=== PATIENT | female | born 1970 | race Caucasian/White ===

== ENCOUNTER → 2017-04-18 | Outpatient (CLI) | payer BC | END | disposition home or self-care (01) | LOC: KCIC MAMMO 12:15 | DX: Z12.31 Encounter for screening mammogram for malignant neoplasm of breast (principal) | CPT/HCPCS: 77067 ==

== ENCOUNTER → 2018-06-01 | Outpatient (CLI) | payer BC ==
--- NOTE | 2018-06-02 10:07 | KCIC ---
Bilateral digital screening mammograms: Reason for examination: Routine screening. Comparison is made to previous studies dated 04/18/2017 and 02/15/2016. Interpretation was made with the benefit of CAD. The skin and nipples show no abnormalities. No abnormal axillary lymph nodes are seen. Bilateral breast implants remain present. The breast parenchyma shows scattered fibroglandular density. (Breast density: Category B.) There is a small parenchymal density in the 12:00 B position of the right breast measuring approximately 6 mm in size. Recommend further evaluation with coned compression views and ultrasound. There are no other dominant masses, suspicious calcifications or architectural distortions. Impression: Small 6 mm nodular parenchymal density in the 12:00 B position of the right breast. Recommend further evaluation with coned compression views in CC and true lateral projections and with ultrasound. BI-RADS Category 0: Incomplete. Needs additional imaging evaluation. "Our facility is accredited by the [employer] Mammography [employer]." This patient's information has been entered into a reminder system for the patient to be notified with the results of her examination and a target date for the next mammogram. Electronically signed by: Sarah Matos MD (06/02/2018 10:04 AM) [id number]
== END | disposition home or self-care (01) ==
LOC: KCIC MAMMO 17:26
PROVIDERS: ATTEND Obstetrics & Gynecology
DX: Z12.31 Encounter for screening mammogram for malignant neoplasm of breast (principal); R92.8 Other abnormal and inconclusive findings on diagnostic imaging of breast; Z98.82 Breast implant status
CPT/HCPCS: 77067

== ENCOUNTER → 2018-06-12 | Outpatient (CLI) | payer BC ==
--- NOTE | 2018-06-12 10:56 | KCIC ---
Right breast diagnostic digital mammograms: Reason for examination: Nodular density on screening mammogram. Comparison is made to mammographic exam dated 06/01/2018. Coned compression views were obtained in CC and lateral projections. With these additional views, there is some minimal focal parenchymal density suggested at that 12:00 B position. Further evaluation however with ultrasound will follow. IMPRESSION: Some minimal parenchymal density at the 12:00 position which would correspond to the area of mammographic concern. Ultrasound to follow. BI-RADS Category 0: Incomplete. Needs additional imaging evaluation. Right breast ultrasound: Ultrasound examination was performed in the area of mammographic concern and at the right axilla. At the 12:00 position 6 cm from the nipple, there is a focal patch of fibrocystic type change measuring 6.5 mm in greatest dimension. No other focal cystic or solid lesions are seen. No abnormal appearing lymph nodes are seen in the axilla. IMPRESSION: Small focus of fibrocystic-type change at the 12:00 position 6 cm from the nipple. Recommend reevaluation with ultrasound in 6 months. BI-RADS Category 3: Probably Benign. "Our facility is accredited by the [employer] Mammography Program." This patient's information has been entered into a reminder system for the patient to be notified with the results of her examination and a target date for the next mammogram. Electronically signed by: Sarah Matos MD (06/12/2018 10:53 AM) [id number]
== END | disposition home or self-care (01) ==
LOC: KCIC MAMMO 09:48
PROVIDERS: ATTEND Obstetrics & Gynecology
DX: R92.8 Other abnormal and inconclusive findings on diagnostic imaging of breast (principal)
CPT/HCPCS: 76641; 77065

== ENCOUNTER → 2018-12-17 | Outpatient (CLI) | payer BC ==
--- NOTE | 2018-12-17 09:47 | KCIC ---
BREAST RIGHT Clinical Indication: Six-month follow-up. Comparison: Right breast ultrasound June 12, 2018. TECHNIQUE: Real-time ultrasound imaging of the right breast is performed. Findings: At the 12:00 position 6 cm from the nipple, fibrocystic change measuring up to 6 mm is stable. No solid mass or architectural distortion is seen. There is no abnormal axillary lymph node. IMPRESSION: 1. Interval stability of small area of fibrocystic change at the 12:00 position 6 cm from the nipple. Recommend patient return to routine mammogram screening. 2. BI-RADS category 2, benign findings. Electronically signed by: Tony Motley MD (12/17/2018 9:44 AM) [id number]
== END | disposition home or self-care (01) ==
LOC: KCIC US 08:53
PROVIDERS: ATTEND Obstetrics & Gynecology
DX: R92.8 Other abnormal and inconclusive findings on diagnostic imaging of breast (principal)
CPT/HCPCS: 76641